=== PATIENT | female | born 1970 | race Caucasian/White ===

== ENCOUNTER 2023-11-04 21:35 | Emergency (ER) | payer BC, SELFPAY ==
[2023-11-04 21:49] VITALS: BP 141/92
--- NOTE | 2023-11-05 00:13 | ED.GENMED ---
History of Present Illness
General
Chief Complaint: Fall
Source: patient
Exam Limitations: none
Time Seen by Provider: 11/04/23 23:56
Nursing documentation reviewed up to this point in time: agreed with
Travel History
Have you had any contact with someone who has COVID-19?: No
Do you have any symptoms of coronavirus? Fever > 100 degrees, chills, cough, shortness of breath, sore throat, loss of taste or smell, muscle aches, or headache?: No
History of Present Illness
History of Present Illness:
This is a 53-year-old woman who has history of hypothyroidism who states while visiting with friends she was attempting to perform yoga moves while seated on a backless stool and inadvertently fell back striking the back of her head on a table. She
denies loss of consciousness, denies headache, denies neck nor back pain. She has no nausea nor vomiting. She has suffered a laceration to the back of her head. Mild to moderate bleeding initially which stopped with local pressure. She denies
dizziness nor lightheadedness.
She takes no anticoagulants including aspirin.
She is unsure as to her last tetanus booster believes this was greater than 10 years ago.
Past History
Past History
ED Past Medical History: Hypothyroidism
ED Past Surgical History: Gynecological (Tubal ligation)
Social History
Tobacco: Non-smoker
Alcohol: Occasional
Drug: None
Personal:
Living: with family
Employment: Employed
Family History
Family History: Other (Noncontributory)
Phy Exam
Physical Exam
Physical Exam:
TRAUMA EXAM:
VITAL SIGNS: Vital signs reviewed, cooperative
DISTRESS: 53-year-old woman appears her stated age, bright and alert, pleasant, appears in no acute distress. Girlfriend is accompanying.
EYES: Pupils reactive, no orbital trauma
NOSE: No deformity or epistaxis
FACE AND SCALP: There is a 3 cm vertical laceration, full-thickness in depth posterior scalp. No active bleeding. No soft tissue swelling. Mild local tenderness to palpation. No palpable bony abnormality. External canals no blood
NECK: Supple nontender, full range of motion without difficulty nor pain.
BACK: Back nontender, pelvis stable to compression
RESPIRATORY: No distress, breath sounds normal, no tender chest wall
CARDIAC: No murmur, pulses equal and strong
ABDOMEN: Soft nontender bowel sounds normal
SKIN: Warm and dry, normal color. Good turgor.
EXTREMITIES: Nontender
NEUROLOGICAL: Alert, oriented, no motor deficits. Gait is muir and steady.
PSYCH: Mood affect normal
Course
Orders/Labs/Results
Orders:
Orders
11/05/23 00:13
Cephalexin Monohydrate [Keflex] 500 mg PO NOW STA
Tetanus/Diphth/Acelpertussis [Adacel] 0.5 ml IM .ONCE ONE
Vital Signs
Initial and Last Documented VS:
Initial Vital Signs
Temp Pulse Resp BP Pulse Ox
98.7 F 85 18 141/92 97
11/04/23 21:49 11/04/23 21:49 11/04/23 21:49 11/04/23 21:49 11/04/23 21:49
Last Documented Vital Signs
Temp Pulse Resp BP Pulse Ox
98.7 F 85 18 141/92 97
11/04/23 21:49 11/04/23 21:49 11/04/23 21:49 11/04/23 21:49 11/04/23 21:49
Procedures
Laceration Closure
Posterior Scalp:
Status of Wound: clean
Size of Wound in cm: 3
Description of Wound Edges: sharp
Preparation: cleaned with saline and cleaned with Betadine
Anesthesia: 1% Lidocaine with epi
Revision/Debridement: routine- no revision and irrigate-direct pressure
Wound exploration: explored to base- no FB and no tendon involvement
Type of Closure: single layer closure
Skin Closure Material: skin manuela
Number of sutures: 6
MDM/Problems Addressed
Differential Diagnosis Includes:
Patient presents after fall off of a stool striking the back of her head sustaining a posterior scalp laceration.
She is bright and alert, without headache, no focal neurodeficits.
Takes no anticoagulants. No indication for CT of the head.
Scalp laceration will require surgical repair.
Will update Tdap.
*Pulse Oximetry
Patient hypoxic: no
*Critical Care Note
Total Time (30-74mins, 75-104mins- exclusive of procedures): Not Applicable
ED Attending Note
-
Portions of this chart may have been created with voice recognition software.� Occasional wrong word or��sound alike� substitutions may have occurred due to the inherent limitations of voice recognition software.
Discharge Plan
Departure
Patient Disposition: Home (Routine Discharge)
Date of Disposition: 11/05/23
Time of Disposition: 00:14
Patient with high blood pressure during this ER visit?: No
Condition: Good
Discharge Problem:
posterior scalp laceration
Instructions: Laceration Repair With Manuela (DC), Tdap vaccine
Prescriptions:
New
cephalexin 500 mg capsule
500 mg PO TID Qty: 15 0RF
No Action
cephalexin [Keflex] 500 MG capsule
500 mg PO Q6 Qty: 39 0RF
ascorbic acid (vitamin C) 1,000 MG tablet
1,000 mg PO DAILY
zolpidem 10 MG tablet
10 mg PO HS PRN (Reason: sleep)
calcium carbonate-vitamin D3 [Calcium 600 + D(3)] 1 EACH capsule
1 ea PO DAILY
vitamin E mixed 400 UNIT capsule
400 unit PO DAILY
Shark Liver Oil
DAILY
Synthroid:
137 mcg PO DAILY
Referrals:
Carmina Arciniega MD [Family Provider] - Follow up in 5-7 days
Interventions
Interventions:
*Risk Screen - Suicide Last Done: 11/05/23 00:04
*General Assessment Last Done: 11/04/23 21:49
*Neglect/Abuse Screening Last Done: 11/05/23 00:04
ED-Musculoskeletal Assessment Last Done: 11/05/23 00:05
ED- Neurological Assessment Last Done: 11/05/23 00:05
ED-Skin Assessment Last Done: 11/05/23 00:05
Discharge Date and Time
Print Language: CROATIAN
[2023-11-05] MEDS: ADACEL 0.5 ML IM (00:35)
[2023-11-05] MEDS: KEFLEX 500 MG PO (00:35)
== END 2023-11-05 00:42 | disposition home or self-care (01) ==
LOC: EMR 21:35
PROVIDERS: EMERGENCY PHYSICIAN Emergency Medicine; FAMILY PHYSICIAN Internal Medicine
DX: S01.01XA Laceration without foreign body of scalp, initial encounter (principal); W19.XXXA Unspecified fall, initial encounter; Z23 Encounter for immunization; E03.9 Hypothyroidism, unspecified
CPT/HCPCS: 99282; 12002; 90471; 90715

== ENCOUNTER → 2025-05-12 06:59 | Outpatient (REF) | payer BC, SELFPAY | LOC: HWRAD 06:59 | PROVIDERS: ATTENDING PHYSICIAN Internal Medicine Hematology & Oncology; FAMILY PHYSICIAN Nurse Practitioner Family | DX: D72.818 Other decreased white blood cell count (principal) | CPT/HCPCS: 76700 ==

== ENCOUNTER → 2025-05-22 15:04 | Outpatient (REF) | payer BC, SELFPAY | LOC: HWRAD 15:04 | PROVIDERS: ATTENDING PHYSICIAN Nurse Practitioner Family | DX: E03.9 Hypothyroidism, unspecified (principal) | CPT/HCPCS: 76536 ==

== ENCOUNTER 2025-06-09 06:19 | Day surgery (SDC) | payer BC, SELFPAY | END 2025-06-09 09:56 | disposition home or self-care (01) | LOC: GI 06:19 | PROVIDERS: ATTENDING PHYSICIAN Internal Medicine Gastroenterology | DX: Z12.11 Encounter for screening for malignant neoplasm of colon (principal); K64.8 Other hemorrhoids | CPT/HCPCS: G0121 ==

== ENCOUNTER → 2025-06-17 08:34 | Outpatient (REF) | payer BC, SELFPAY ==
[2025-06-17 09:33] LABS: ALT (SGPT) 17 U/L (0-35); AST (SGOT) 27 U/L (14-36); Albumin 4.8 g/dl (3.5-5.0); Alkaline Phosphatase 43 U/L (38-126); Blood Urea Nitrogen 11 mg/dl (7-17); Calcium 9.0 mg/dl (8.4-10.2); Carbon Dioxide 28 mmol/L (22-30); Chloride 104 mmol/L (98-107); Glucose 74 mg/dl (70-99); Potassium 4.2 mmol/L (3.5-5.1); Sodium 140 mmol/L (135-145); Total Protein 7.4 g/dl (6.3-8.2); eGFR > 60.00
[2025-06-17 09:59] LABS: Hematocrit 39.6 % (37.0-47.0); Hemoglobin 13.2 g/dL (12.0-16.0); Mean Corp Hgb Conc. 33.3 g/dL (33.0-37.0); Mean Corpuscular Volume 101.0 fL (81.0-99.0); Nucleated Red Blood Cells % 0 %; Platelet Count 245 10^3/uL (130-400); Red Cell Dist. Width 12.3 % (11.5-14.5)
[2025-06-17 10:41] LABS: Folate 5.8 ng/ml (2.76-20); Vitamin B12 988 pg/ml (239-931)
== END ==
LOC: REG 08:34
PROVIDERS: ATTENDING PHYSICIAN Internal Medicine Hematology & Oncology; FAMILY PHYSICIAN Nurse Practitioner Family
DX: D72.818 Other decreased white blood cell count (principal); E03.9 Hypothyroidism, unspecified
CPT/HCPCS: 36415; 80053; 82607; 82746; 85025

== ENCOUNTER → 2025-07-02 13:38 | Outpatient (REF) | payer BC, SELFPAY | LOC: HWWDC 13:38 | PROVIDERS: ATTENDING PHYSICIAN Nurse Practitioner Family | DX: Z12.31 Encounter for screening mammogram for malignant neoplasm of breast (principal) | CPT/HCPCS: 77063; 77067 ==

== ENCOUNTER → 2025-07-29 10:39 | Outpatient (REF) | payer BC, SELFPAY | LOC: RAD 10:39 | PROVIDERS: ATTENDING PHYSICIAN Physician Assistant; FAMILY PHYSICIAN Nurse Practitioner Family | DX: M19.041 Primary osteoarthritis, right hand (principal); M19.042 Primary osteoarthritis, left hand | CPT/HCPCS: 73130 ==